=== PATIENT | female | born 1965 | race Two or more races ===

== ENCOUNTER 2018-02-28 08:30 | Emergency (ER) | payer BC ==
[~2018-02-28 08:30] MED LIST: CLOT1CRE EXT; FLUC150T38 PO; HYDR0.5C EX; METR0.7511 VA
[2018-02-28 08:50] VITALS: BP 120/62
[2018-02-28] MEDS ORDERED: KETOROLAC TROMETH 60MG/2ML VIAL IM ONE (09:30)
[2018-02-28] MEDS ORDERED: CYCLOBENZAPRINE HCL 10 MG TAB PO ONE (09:30)
== END 2018-02-28 12:39 | disposition home or self-care (01) ==
LOC: EDBD 08:30 → ER 08:30
DX: M54.5 Low back pain (principal); E11.9 Type 2 diabetes mellitus without complications; E78.5 Hyperlipidemia, unspecified; V43.52XA Car driver injured in collision with other type car in traffic accident, initial encounter; Y93.89 Activity, other specified; Y99.8 Other external cause status; Y92.410 Unspecified street and highway as the place of occurrence of the external cause
CPT/HCPCS: 72100; 96372; 99284; J1885